=== PATIENT | female | born 1975 | race Hispanic/Latino ===

== ENCOUNTER 2019-04-27 19:54 | Emergency (ER) | payer MEDICARE, OTHER ==
--- NOTE | 2019-04-27 20:19 | RAD ---
EXAM: 3 views of the left hand COMPARISON: None HISTORY: Hand pain after injury FINDINGS: 3 views of the left hand shows no evidence of acute fracture or dislocation. No degenerativ e changes are seen. Mild index finger soft tissue swelling is present. IMPRESSION: Unremarkable exam.
[2019-04-27] MEDS ORDERED: Adacel (T-DAP) 0.5 ML SYRINGE ONE (20:52)
[2019-04-27] MEDS ORDERED: Naproxen 500 MG TAB ONE (21:02)
== END 2019-04-27 21:20 | disposition home or self-care (01) ==
LOC: ERS 19:54
DX: L03.114 Cellulitis of left upper limb (principal)
CPT/HCPCS: 90471; 90715